=== PATIENT | female | born 1950 | race Caucasian/White ===

== ENCOUNTER → 2019-12-09 | Outpatient (CLI) | payer OTHER ==
--- NOTE | 2019-12-09 11:24 | CARD ---
MR#: [id number] Date of Study: 12/09/2019 Ordering Physician: GINGER DAN, Referring Physician: GINGER DAN Tech: Shaniqua Khan RDCS APPROVED REPORT EXAM: Two-dimensional and M-mode echocardiogram with Doppler and color Doppler. Other Information Quality : Good INDICATION Exertional Dyspnea 2D DIMENSIONS RVDd2.3 (2.9-3.5cm)Left Atrium(2D)3.7 (1.6-4.0cm) IVSd1.0 (0.7-1.1cm)Aortic Root(2D)3.0 (2.0-3.7cm) LVDd4.1 (3.9-5.9cm)LVOT Diameter1.9 (1.8-2.4cm) PWd0.7 (0.7-1.1cm)LVDs2.3 (2.5-4.0cm) FS (%) 30.0 %SV56.0 ml LVEF(%)60.0 (>50%) Aortic Valve AoV Peak Jaziel.154.0cm/sAoV VTI32.0cm AO Peak GR.9.5mmHgLVOT Peak Jaziel.134.1cm/s AO Mean GR.5mmHgAVA (VMAX)2.34cm2 AMENA (VTI)2.50cm2 Mitral Valve MV E Uikdmvap505.9cm/sMV DECEL HAPS298ju MV A Fxmmuvkh520.1cm/sE/A Ratio1.2 Tricuspid Valve TR P. Lybxluvl018rm/sRAP UTMQNJRY0kwFg TR Peak Gr.60rdObPCCK32ehMn Pulmonary Vein S1 Swkazelo38.5cm/sD2 Ffciqrvb24.0cm/s LEFT VENTRICLE The left ventricle is normal size. There is normal left ventricular wall thickness. The left ventricu lar systolic function is normal. The Ejection Fraction is 55-60%. There is normal LV segmental wall m otion. RIGHT VENTRICLE The right ventricle is normal size. The right ventricular systolic function is normal. ATRIA The left atrium size is normal. The right atrium size is normal. The interatrial septum is intact wit h no evidence for an atrial septal defect or patent foramen ovale as noted on 2-D or Doppler imaging. AORTIC VALVE The aortic valve is calcified but opens well. Doppler and Color Flow revealed no significant aortic r egurgitation. There is no significant aortic valvular stenosis. MITRAL VALVE The mitral valve is calcified but opens well. There is no evidence of mitral valve prolapse. There is no mitral valve stenosis. Doppler and Color-flow revealed trace to mild mitral regurgitation. TRICUSPID VALVE The tricuspid valve is normal in structure and function. Doppler and Color Flow revealed mild tricusp id regurgitation. There is mild pulmonary hypertension. The PA pressure was estimated at 39 mmHg. The re is no tricuspid valve stenosis. PULMONIC VALVE The pulmonic valve is not well visualized. Doppler and Color Flow revealed mild pulmonic valvular reg urgitation. There is no pulmonic valvular stenosis. GREAT VESSELS The aortic root is normal in size. The ascending aorta is normal in size. The IVC is normal in size a nd collapses >50% with inspiration. PERICARDIAL EFFUSION There is no evidence of significant pericardial effusion. Critical Notification Critical Value: No <Conclusion> The left ventricular systolic function is normal and the ejection fraction is within normal range. The left ventricular systolic function is normal. The Ejection Fraction is 55-60%. There is normal LV segmental wall motion. Trace to mild mitral regurgitation. Mild tricuspid regurgitation. The PA pressure was estimated at 39 mmHg. There is no evidence of significant pericardial effusion. Signed by : Ginger Dan, Electronically Approved : 12/09/2019 11:23:31
== END | disposition home or self-care (01) ==
LOC: ECHO 09:17
PROVIDERS: ATTEND Internal Medicine Cardiovascular Disease
DX: I08.8 Other rheumatic multiple valve diseases (principal); I27.20 Pulmonary hypertension, unspecified; R06.09 Other forms of dyspnea
CPT/HCPCS: 93306

== ENCOUNTER 2021-06-06 06:50 | Day surgery (SDC) | payer MEDICARE ==
[~2021-06-06] VITALS: Ht 154.9 cm; Wt 85.5 kg
[~2021-06-06 06:50] MED LIST: ASPI-630 PO; ATOR40TA59 PO; BIOT1CAP3 PO; CHOL500045 PO; DILT180T7 PO; FURO20TA3 PO; HYDR-2145 PO; HYDROmorphone 2 MG/ML INJ. IVP PRN; IV RINGERS,LACTATED 1000ML 1,000 ML IV SCH; LOSA100T14 PO; MAGN100T6 PO; METO-239 PO; MORPHINE SULFATE 2 MG/ML INJ. IVP PRN; MULT-121 PO; OMEP20TA63 PO; PROCHLORPERAZINE 10 MG/2 ML VIAL. IVP PRN; TIZA-75 PO; fentaNYL PF VIAL 100 MCG/2 ML VIAL IVP PRN
[2021-06-06 07:21] VITALS: BP 182/82
[2021-06-06] MEDS ORDERED: HYDR-2759 PO (07:21)
--- NOTE | 2021-06-06 07:22 | DISCH ---
DISCHARGE INSTRUCTIONS Condition on Discharge Condition on Discharge: Stable Activity After Discharge Activity Instructions for Disc: Activity as tolerated Bathing Instructions: Shower-keep dressing dry Lifting Instructions after Dis: No heavy lifting, No pulling or pushing, Do not lift >10 pounds Weight Bearing Status after Di: As tolerated Diet after Discharge Diet after Discharge: Regular Wound Incision Care Wound/Incision Care: Ice to area for comfort, Keep wound/cast CDI, Keep wound elevated, Change dressing Contacting the DR. after DC Call your doctor for: Concerns you may have Follow-Up Follow up with: Junior in 2 wks SINDI CASTELAN II, MD Jun 06, 2021 07:22
[2021-06-06] MEDS ORDERED: PROPOFOL 10 MG/ML (20ML) VIAL. IV ONE (07:29)
[2021-06-06] MEDS ORDERED: SEVOFLURANE 31 TO 60 MINUTES. IH ONE (07:29)
[2021-06-06] MEDS ORDERED: ONDANSETRON PF 4 MG/2 ML VIAL. ONE (07:29)
[2021-06-06] MEDS ORDERED: LIDOCAINE 2% PF 5 ML VIAL. ONE (07:29)
[2021-06-06] MEDS ORDERED: DEXAMETHASONE SOD PHOS 4 MG/ML VIAL ONE (07:29)
--- NOTE | 2021-06-06 07:30 | PDOC4 ---
Operative Note Operative Note Date of procedure: 06/06/21 Surgeon: Marquez Castelan [employer] Farmer: Qamar Cooper Preoperative diagnosis: Right ring trigger finger Postoperative diagnosis: Same Procedure performed: Open right ring trigger finger release Anesthesia: MAC with Ipava block Findings: Thickened cystic nodule at flexor tendon Blood loss: 2mL Tourniquet time: 30 min Complications: none Reason for procedure: Patient is a pleasant female who has had painful catching at her 4th digit. We have tried injections in the past and these have not had any effect. Due to failure of conservative therapies and interference with her activities daily living, we discussed proceeding with the above surgery and she elected to proceed. Description of procedure: Patient was greeted in the preoperative area by myself for the correct extremity was verified and marked, initials on the correct digit. She was taken back to the operative suite and antibiotics were started as she was brought back. Once in the operating room, she was transferred to respond the operating table and secured the bed with all pressure points padded. The hand board attachment was secured to the operating room table. She underwent successful MAC, and placement of a Ipava block. The right upper extremity was then prepped and draped in our usual sterile fashion and we conducted our standard preoperative timeout. I then made about a 1 cm transverse incision just proximal to the volar metacarpal head of the affected digit and dissected subcutaneous tissues tissue with a mosquito. Identified the flexor tendon sheath and the A1 du, used a Ragnell retractor at the distal portion of the incision and tenotomies to release the A1 du. After this, I used tenotomy's to excise some of the wall of the cyst. I then used the mosquito is to delivered the flexor tendons from the incision to help ensure accomplished a complete release and I was confident I had. After this, the wound was irrigated out and the skin was closed with 3-0 nylon in a mattress fashion. A sterile soft bulky dressing was then applied. Patient was awakened from anesthesia. No compli cations. All counts were correct times 2 prior to wound closure. Surgery was tolerated well by the patient and at the conclusion the patient was transferred gently supine to the recovery room cart and taken to PACU in a stable condition. Postoperative plan is to discharge him home, active range of motion and elevation were encouraged. Shell follow up with me in 2 weeks, sooner should a problem arise. MARQUEZ CASTELAN II, MD Jun 06, 2021 07:30
[2021-06-06] MEDS ORDERED: BUPIVACAINE MPF 0.5% 30 ML VIAL. ONE (07:35)
[2021-06-06] MEDS ORDERED: LIDOCAINE 1% Multi-Dose 20 ML VIAL. ONE (07:35)
[2021-06-06] MEDS ORDERED: MIDAZOLAM HCL/PF 2 MG/2 ML VIAL. ONE (07:50)
[2021-06-06] MEDS ORDERED: LIDOCAINE 1% PF 30 ML VIAL. ONE (07:57)
[2021-06-06] MEDS ORDERED: fentaNYL PF VIAL 100 MCG/2 ML VIAL ONE (08:05)
[2021-06-06] MEDS ORDERED: HYDROcodone/APAP 5/325MG 1 TAB TABLET PO ONE (09:00)
[2021-06-06 09:09] VITALS: BP 141/65
== END 2021-06-06 09:45 | disposition home or self-care (01) ==
LOC: SURG 06:50
PROVIDERS: ATTEND Orthopaedic Surgery Sports Medicine
DX: M65.341 Trigger finger, right ring finger (principal); I10 Essential (primary) hypertension; E78.00 Pure hypercholesterolemia, unspecified; Z90.49 Acquired absence of other specified parts of digestive tract; Z90.710 Acquired absence of both cervix and uterus; Z98.890 Other specified postprocedural states; Z79.899 Other long term (current) drug therapy; Z79.82 Long term (current) use of aspirin; Z87.891 Personal history of nicotine dependence; Z88.8 Allergy status to other drugs, medicaments and biological substances
CPT/HCPCS: 26055; A4930; A6402; J0690; J1100; J2250; J2405; J2704; J3010; J3490; A6452